=== PATIENT | female | born 1955 | race Caucasian/White ===

== ENCOUNTER 2022-02-28 15:31 | Outpatient (CLI) | payer MEDICARE, BC | END 2022-02-28 15:32 | disposition home or self-care (01) | LOC: SCSMRI 15:31 | PROVIDERS: ATTEND Orthopaedic Surgery | DX: M51.16 Intervertebral disc disorders with radiculopathy, lumbar region (principal); M54.50 Low back pain, unspecified; M48.07 Spinal stenosis, lumbosacral region; M48.061 Spinal stenosis, lumbar region without neurogenic claudication | CPT/HCPCS: 72148 ==

== ENCOUNTER 2023-03-14 09:52 | Outpatient (CLI) | payer MEDICARE, BC | END 2023-03-14 09:53 | disposition home or self-care (01) | LOC: BICRAD 09:52 | PROVIDERS: ATTEND Family Medicine | DX: M54.41 Lumbago with sciatica, right side (principal); M47.816 Spondylosis without myelopathy or radiculopathy, lumbar region | CPT/HCPCS: 72100 ==

== ENCOUNTER 2024-07-07 07:59 | Outpatient (CLI) | payer MEDICARE | END 2024-07-07 08:00 | disposition home or self-care (01) | LOC: BICULT 07:59 | PROVIDERS: ATTEND Family Medicine | DX: R10.12 Left upper quadrant pain (principal); K76.0 Fatty (change of) liver, not elsewhere classified | CPT/HCPCS: 76700 ==